=== PATIENT | female | born 1995 ===

== ENCOUNTER 2016-11-23 04:22 | Emergency (ER) | payer SELFPAY ==
[2016-11-23] MEDS ORDERED: Sodium Chloride 0.9% 500 ML IV ONE ×2 (04:53→05:00)
[2016-11-23 05:05] LABS: BASO % 0.2 % (0.0-2.0); EOS # 0.1 K/uL (0.0-0.7); EOS % 0.9 % (0.0-4.0); HEMATOCRIT 41.2 % (34.0-47.0); LYMPH # 0.6 K/uL (1.0-4.3); LYMPH % 4.5 % (20.0-40.0); MEAN CELL VOLUME 86.6 fL (81.0-99.0); MEAN CORPUSCULAR HEMOGLOBIN 28.6 pg (27.0-31.0); MEAN CORPUSCULAR HGB CONC 33.1 g/dL (33.0-37.0); MEAN PLATELET VOLUME 7.2 fL (7.2-11.7); MONO # 0.5 K/uL (0.0-0.8); MONO % 3.9 % (0.0-10.0); PLATELET COUNT 297 K/uL (130-400); RED CELL DISTRIBUTION WIDTH 13.2 % (11.5-14.5); WHITE BLOOD COUNT 13.7 K/uL (4.8-10.8)
--- NOTE | 2016-11-23 05:26 | C.PDOC ---
History Of Present Illness 21 y/o female presents to ED with c/o epigastric abdominal pain radiating to periumbilical area and left flank associated with vomiting x 3 since last night. Patient is currently menstruating for 2 days. Denies fever, chills, diarrhea, or other associated symptoms. Time Seen by Provider: 11/23/16 04:47 Chief Complaint (Nursing): Abdominal Pain History Per: Patient History/Exam Limitations: no limitations Onset/Duration Of Symptoms: Days Current Symptoms Are (Timing): Still Present Radiation Of Pain To:: Back (left) Quality Of Discomfort: "Pain" Associated Symptoms: Nausea, Vomiting. denies: Fever, Chills, Diarrhea, Constipation, Urinary Symptoms Past Medical History Reviewed: Historical Data, Nursing Documentation, Vital Signs Vital Signs: Last Vital Signs Temp 98.6 F 11/23/16 04:31 Pulse 100 H 11/23/16 04:31 Resp 18 11/23/16 04:31 BP 122/83 11/23/16 04:31 Pulse Ox 97 11/23/16 06:42 - Medical History PMH: No Chronic Diseases Family History: States: Unknown Family Hx - Social History Hx Alcohol Use: Yes Hx Substance Use: No - Immunization History Hx Tetanus Toxoid Vaccination: No Hx Influenza Vaccination: No Hx Pneumococcal Vaccination: No Review Of Systems Except As Marked, All Systems Reviewed And Found Negative. Constitutional: Negative for: Fever Respiratory: Negative for: Cough Gastrointestinal: Positive for: Nausea, Vomiting, Abdominal Pain Genitourinary: Negative for: Dysuria Skin: Negative for: Rash Physical Exam - Physical Exam Appears: Well, No Acute Distress Skin: Normal Color Head: Atraumatic Eye(s): bilateral: Normal Inspection, PERRL Oral Mucosa: Moist Cardiovascular: Rhythm Regular, No Murmur Respiratory: Normal Breath Sounds, No Wheezing Gastrointestinal/Abdominal: Normal Exam, Soft, Tenderness (minmal to LUQ), No Distention, No Guarding, No Rebound Rectal: Deferred Back: No CVA Tenderness Pelvic: Other (refused - menstruating) ED Course And Treatment - Laboratory Results Result Diagrams: 11/23/16 05:02 11/23/16 05:02 O2 Sat by Pulse Oximetry: 97 Pulse Ox Interpretation: Normal Progress Note: Labs ordered and reviewed. Pt reports improvemnt of back and LUQ pain, now c/o of pain to periumbilical /epigastric area. Abdomen CT with PO and IV contrast ordered Disposition Counseled Patient/Family Regarding: Diagnosis, Need For Followup - Disposition Disposition Time: 05:32 Condition: STABLE Additional Instructions: Take meds as prescribed Follow up in clinic Return to ER if fever, increasing or recurring pain or if symptoms worsen Prescriptions: Aluminum Hydroxide/Magnesium H [Maalox 30 ml] 30 ml PO BID #100 ml Famotidine [Pepcid] 20 mg PO DAILY #20 tab Forms: General Discharge Instructions - Clinical Impression Clinical Impression: Epigastric abdominal pain - Scribe Statement The provider has reviewed the documentation as recorded by the Scribe Physician Patient Turnover Patient Signed Over To: Darcy Encarnacion Handoff Comments: Pending Abd / pelvis CT
[2016-11-23 05:27] LABS: RBC URINE 16 /hpf (0-3); URINE BILIRUBIN NEGATIVE (NEGATIVE); URINE BLOOD NEGATIVE (NEGATIVE); URINE COLOR Yellow (YELLOW); URINE GLUCOSE (UA) NORMAL (Normal); URINE KETONE TRACE mg/dL (NEGATIVE); URINE LEUKOCYTE ESTERASE NEG Leu/uL (Negative); URINE PROTEIN 2+ mg/dL (NEGATIVE); WBC URINE 1 /hpf (0-5)
[2016-11-23 06:10] LABS: ALKALINE PHOSPHATASE 57 U/L (38-126); BILIRUBIN,TOTAL 0.7 mg/dL (0.2-1.3); CALCIUM 8.6 mg/dl (8.6-10.4); CHLORIDE 103 mmol/L (98-107); GFR AFRICAN-AMERICAN > 60; GLUCOSE,RANDOM 101 mg/dL (65-105); POTASSIUM 3.7 mmol/L (3.6-5.2); SODIUM 142 mmol/L (132-148)
[2016-11-23 06:11] LABS: NEUTROPHIL 89 % (50-75); TOTAL CELLS COUNTED 100
[2016-11-23 06:18] LABS: ALB/GLOB RATIO 1.4 (1.0-2.1); AST/SGOT 28 U/L (14-36); CARBON DIOXIDE 23 mmol/L (22-30); TOTAL PROTEIN 7.3 g/dL (6.3-8.3)
[2016-11-23 06:19] LABS: ALT/SGPT 19 U/L (9-52); BLOOD UREA NITROGEN 12 mg/dL (7-17)
[2016-11-23] MEDS ORDERED: Aluminum Hydroxide/Magnesium Hydroxide Susp (30 mL) PO STA (06:30)
[2016-11-23] MEDS ORDERED: Iohexol 240 (50 ml) PO ONE (06:46)
[2016-11-23] MEDS ORDERED: Aluminum Hydroxide/Magnesium Hydroxide Susp (30 mL) ONE (06:48)
[2016-11-23] MEDS ORDERED: Iohexol 240 (50 ml) ONE (06:59)
[2016-11-23] MEDS ORDERED: Iohexol 350mg/ml 100 ML ONE (08:53)
--- NOTE | 2016-11-23 10:15 | CT ---
PROCEDURE: CT Abdomen and Pelvis with contrast HISTORY: RLQ pain COMPARISON: None. TECHNIQUE: Contrast dose: 100 mL Radiation dose: Total exam DLP = 323.53 mGy-cm. This CT exam was performed using one or more of the following dose reduction techniques: Automated exposure control, adjustment of the mA and/or kV according to patient size, and/or use of iterative reconstruction technique. FINDINGS: LOWER THORAX: Unremarkable. LIVER: Geographic hypoattenuation of the liver likely from hepatic steatosis. GALLBLADDER AND BILE DUCTS: Unremarkable. PANCREAS: Unremarkable. No gross lesion or ductal dilatation. SPLEEN: Unremarkable. 1.2 centimeter likely splenule best seen on image 51 series 3. ADRENALS: Unremarkable. No mass. KIDNEYS AND URETERS: Unremarkable. No hydronephrosis. No solid mass. Dual arterial supply to the right kidney. Dual collecting system on the left. VASCULATURE: No aortic aneurysm. Moderately dilated veins in the pelvis particularly on the left. BOWEL: Unremarkable. No obstruction. No gross mural thickening. APPENDIX: Normal appendix. PERITONEUM: Unremarkable. No free fluid. No free air. LYMPH NODES: Unremarkable. No enlarged lymph nodes. BLADDER: Unremarkable. REPRODUCTIVE: Please note that evaluation of gynecologic organs is not optimal on CT imaging. Soft tissue structures seen posterior to the uterus could represent the lower uterine segment/cervix. Small amount of fluid seen in the cul-de-sac. BONES: No acute fracture. OTHER FINDINGS: None. IMPRESSION: No evidence of appendicitis. Soft tissue structure seen posterior to the uterus could represent the lower uterine segment/ cervix. Followup evaluation with ultrasound recommended.
[2016-11-23 10:39] VITALS: BP 98/59; PULSE 98; RESP 16; TEMP 98.4; O2SAT 99
== END 2016-11-23 10:50 | disposition home or self-care (01) ==
LOC: C.ER 04:22 → SUPCPDRO 04:22 → C.ER 10:50
DX: R10.13 Epigastric pain (principal)
CPT/HCPCS: 74177; 80053; 81001; 83690; 84703; 85025; 96361; 96374; 96375; 96376; 99285; J1885; J2405; J7040; Q9966; Q9967

== ENCOUNTER 2018-03-27 12:54 | Emergency (ER) | payer OTHER ==
[2018-03-27 13:36] LABS: HCG,QUALITATIVE URINE NEGATIVE (NEGATIVE); URINE CLARITY Clear (Clear); URINE COLOR YELLOW (YELLOW)
[2018-03-27 13:37] LABS: PH,URINE 5.5 (5.0-8.0); URINE BILIRUBIN NEGATIVE (NEGATIVE); URINE BLOOD 2+ (NEGATIVE); URINE GLUCOSE (UA) NEGATIVE (Normal); URINE LEUKOCYTE ESTERASE NEGATIVE Leu/uL (Negative); URINE PROTEIN NEGATIVE (NEGATIVE); URINE UROBILINOGEN 0.2 mg/dL (0.2-1.0)
[2018-03-27 13:49] LABS: SQUAMOUS EPITHIAL 6 /hpf (0-5); URINE BACTERIA RARE (<OCC)
--- NOTE | 2018-03-27 14:09 | C.PDOC ---
History Of Present Illness 23 y/o female presents to ED with c/o right flank pain for 3 weeks and vaginal spotting. Patient has had symptoms previously and was told she had kidney infection and needed ultrasound. Patient denies abdominal pain, nausea, vomiting , fever, chills or any other complaints at this time. Time Seen by Provider: 03/27/18 13:14 Chief Complaint (Nursing): Female Genitourinary History Per: Patient History/Exam Limitations: no limitations Onset/Duration Of Symptoms: Days Current Symptoms Are (Timing): Still Present Past Medical History Reviewed: Historical Data, Nursing Documentation, Vital Signs Vital Signs: Last Vital Signs Temp 98.1 F 03/27/18 13:02 Pulse 72 03/27/18 13:02 Resp 16 03/27/18 13:02 BP 125/76 03/27/18 13:02 Pulse Ox 98 03/27/18 14:11 - Medical History PMH: No Chronic Diseases Surgical History: No Surg Hx Family History: States: No Known Family Hx - Social History Hx Alcohol Use: Yes Hx Substance Use: No - Immunization History Hx Tetanus Toxoid Vaccination: No Hx Influenza Vaccination: No Hx Pneumococcal Vaccination: No Review Of Systems Except As Marked, All Systems Reviewed And Found Negative. Genitourinary: Positive for: Other (Right flank pain) Physical Exam - Physical Exam Appears: Non-toxic, No Acute Distress Skin: Warm, Dry, No Rash Head: Atraumatic, Normacephalic Eye(s): bilateral: Normal Inspection Oral Mucosa: Moist Cardiovascular: Rhythm Regular Respiratory: Normal Breath Sounds, No Rales, No Rhonchi, No Wheezing Gastrointestinal/Abdominal: Soft, No Tenderness, No Guarding, No Rebound Back: No CVA Tenderness, No Paraspinal Tenderness Neurological/Psych: Oriented x3, Normal Speech, Normal Cognition ED Course And Treatment O2 Sat by Pulse Oximetry: 98 (RA) Pulse Ox Interpretation: Normal Medical Decision Making Medical Decision Making: Assessment: Flank pain Disposition - Disposition Referrals: Vance Tomas MD [Staff Provider] - Disposition: HOME/ ROUTINE Disposition Time: 15:26 Condition: STABLE Additional Instructions: follow up with urology in 2 days call to make an appointment take medications as prescribed return to ER if symptoms worsens or progress Prescriptions: Naproxen [Naprosyn] 500 mg PO BID PRN #16 tab PRN Reason: Pain, Moderate (4-7) Instructions: Kidney Stones (DC) Forms: [facility] (Salvadorean), General Discharge Instructions - Clinical Impression Clinical Impression: Kidney stone - Scribe Statement The provider has reviewed the documentation as recorded by the Dixonibjackie Swain All medical record entries made by the Dixonibe were at my direction and personally dictated by me. I have reviewed the chart and agree that the record accurately reflects my personal performance of the history, physical exam, medical decision making, and the department course for this patient. I have also personally directed, reviewed, and agree with the discharge instructions and disposition.
--- NOTE | 2018-03-27 14:52 | US ---
Renal ultrasound History: Flank pain. Comparison: None available. Technique: Real-time sonography was performed through the kidneys. Findings: Right kidney: 11.3 x 3.8 x 4.8 centimeters. Normal echogenicity. 3 millimeter echogenic foci in the midpole of the right kidney suggestive for a calculus. Mild fullness of the right renal collecting system without gross hydronephrosis. Visualized aorta is grossly preserved. Left Kidney: 11.3 x 5.8 x 5.3 cm. Normal echogenicity. No calculi or hydronephrosis. Underdistended urinary bladder limits evaluation. Impression: 3 millimeter echogenic calcification/ calculus in the midpole of the right kidney with mild fullness of the right renal collecting system. No gross hydronephrosis. Clinical correlation.
[2018-03-27 15:38] VITALS: BP 118/74; PULSE 74; RESP 18; TEMP 98; O2SAT 99
== END 2018-03-27 15:37 | disposition home or self-care (01) ==
LOC: C.ER 12:54
DX: N20.0 Calculus of kidney (principal)

== ENCOUNTER 2018-06-27 13:23 | Emergency (ER) | payer OTHER ==
[2018-06-27 13:33] VITALS: RESP 16
--- NOTE | 2018-06-27 14:02 | C.PDOC ---
History Of Present Illness 23 y/o female pt presents to the ER complaining of weakness and headache. Pt reports she was at her boyfriend's physician office when she suddenly felt dizzy, light-headed and flushed. She also felt numb on her hands, face and mouth. Pt was near-syncopal and her boyfriend states that she looked pale and gave her candy because he thought her blood sugar dropped. Pt denies visual changes, nausea, SOB, vomiting, chest pain and abdominal pain. Pt has an IUD and doesn't get her period often. Time Seen by Provider: 06/27/18 13:42 Chief Complaint (Nursing): Dizziness/Lightheaded History Per: Patient History/Exam Limitations: no limitations Onset/Duration Of Symptoms: Hrs Current Symptoms Are (Timing): Better Activity At Onset Of Symptoms: Sitting Past Medical History Reviewed: Historical Data, Nursing Documentation, Vital Signs Vital Signs: Last Vital Signs Temp 98.1 F 06/27/18 13:31 Pulse 69 06/27/18 13:31 Resp 16 06/27/18 13:31 BP 124/88 06/27/18 13:31 Pulse Ox 98 06/27/18 13:31 Family History: States: Unknown Family Hx - Social History Hx Alcohol Use: Yes Hx Substance Use: No - Immunization History Hx Tetanus Toxoid Vaccination: No Hx Influenza Vaccination: No Hx Pneumococcal Vaccination: No Review Of Systems Eyes: Negative for: Vision Change Cardiovascular: Negative for: Chest Pain Gastrointestinal: Negative for: Nausea, Vomiting, Abdominal Pain Neurological: Positive for: Weakness, Headache Physical Exam - Physical Exam Appears: Non-toxic, No Acute Distress Skin: Normal Color, Warm, Dry Head: Normacephalic Eye(s): bilateral: Normal Inspection, PERRL, EOMI Nose: Normal Oral Mucosa: Moist Neck: Normal ROM, Supple Chest: Symmetrical, No Deformity Cardiovascular: Rhythm Regular Respiratory: Normal Breath Sounds Gastrointestinal/Abdominal: Soft, No Tenderness Back: No CVA Tenderness Extremity: Normal ROM (x4) Pulses: Left Radial: Normal, Right Radial: Normal Neurological/Psych: Oriented x3, Normal Speech, Normal Cognition Gait: Steady ED Course And Treatment - Laboratory Results Result Diagrams: 06/27/18 14:29 06/27/18 14:29 Lab Interpretation: No Acute Changes ECG: Interpreted By Me, Viewed By Me ECG Rhythm: Sinus Rhythm ECG Interpretation: Normal, No Acute Changes Rate From EC O2 Sat by Pulse Oximetry: 98 (RA) Pulse Ox Interpretation: Normal Progress Note: Orthostatic vital signs normal. Reevaluation Time: 15:52 Reassessment Condition: Unchanged (Patient still c/o feeling "lightheaded' but has no other specific complaints,) Medical Decision Making Medical Decision Making: Impression: weakness and headache plans: -- ekg -- blood work -- chem labs -- UA Disposition Counseled Patient/Family Regarding: Studies Performed, Diagnosis, Need For Followup - Disposition Referrals: [facility] [Outside] Disposition: HOME/ ROUTINE Disposition Time: 15:53 Condition: STABLE Additional Instructions: Encourage plenty of fluids and rest. Eat frequent small meals to avoid low blood sugar. Instructions: Dizziness, Nonvertigo, (DC) Forms: [facility] (Jordanian) - Clinical Impression Clinical Impression: Dizziness - Scribe Statement The provider has reviewed the documentation as recorded by the Scribe Terrazas Do Provider Attestation: All medical record entries made by the Scribe were at my direction and personally dictated by me. I have reviewed the chart and agree that the record accurately reflects my personal performance of the history, physical exam, medical decision making, and the department course for this patient. I have also personally directed, reviewed, and agree with the discharge instructions and disposition.
[2018-06-27 14:40] LABS: BASO # 0.1 K/uL (0.0-0.2); BASO % 0.6 % (0.0-2.0); EOS # 0.1 K/uL (0.0-0.7); EOS % 0.7 % (0.0-4.0); HEMOGLOBIN 13.6 g/dL (11.0-16.0); LYMPH # 1.3 K/uL (1.0-4.3); MEAN CELL VOLUME 86.8 fL (81.0-99.0); MEAN CORPUSCULAR HEMOGLOBIN 28.6 pg (27.0-31.0); MEAN PLATELET VOLUME 7.1 fL (7.2-11.7); MONO # 0.5 K/uL (0.0-0.8); NEUT # 7.8 K/uL (1.8-7.0); NEUT % 80.7 % (50.0-75.0); RBC 4.75 Mil/uL (3.80-5.20); RED CELL DISTRIBUTION WIDTH 13.2 % (11.5-14.5); WHITE BLOOD COUNT 9.7 K/uL (4.8-10.8)
[2018-06-27 14:50] LABS: SQUAMOUS EPITHIAL 4 /hpf (0-5); URINE BILIRUBIN NEGATIVE (NEGATIVE); URINE BLOOD 1+ (NEGATIVE); URINE CLARITY Clear (Clear); URINE COLOR Yellow (YELLOW); URINE GLUCOSE (UA) NORMAL (Normal); URINE LEUKOCYTE ESTERASE NEG Leu/uL (Negative); URINE PROTEIN NEGATIVE (NEGATIVE); URINE UROBILINOGEN NORMAL mg/dL (0.2-1.0)
[2018-06-27 15:23] LABS: ALB/GLOB RATIO 1.7 (1.0-2.1); ALBUMIN 4.8 g/dL (3.5-5.0); ALT/SGPT 24 U/L (9-52); AST/SGOT 29 U/L (14-36); BLOOD UREA NITROGEN 12 mg/dL (7-17); CALCIUM 9.1 mg/dl (8.6-10.4); GFR NON-AFRICAN AMERICAN > 60
[2018-06-27 16:03] VITALS: BP 101/64; PULSE 75; TEMP 98.2; O2SAT 100
--- NOTE | 2018-06-30 20:07 | CARD ---
APPROVED REPORT Date of service: 06/27/2018 EKG Measurement Heart [id number] <Conclusion> Normal sinus rhythm Minimal voltage criteria for LVH, may be normal variant Borderline ECG
== END 2018-06-27 16:19 | disposition home or self-care (01) ==
LOC: C.ER 13:23
DX: R42 Dizziness and giddiness (principal)

== ENCOUNTER 2018-09-06 09:31 | Outpatient (CLI) | payer OTHER | END 2018-09-06 09:32 | disposition home or self-care (01) | LOC: C.USIC 09:31 | DX: R10.2 Pelvic and perineal pain (principal) ==

== ENCOUNTER 2018-11-22 11:13 | Emergency (ER) | payer OTHER ==
[2018-11-22 11:19] VITALS: BMI 24.4
[2018-11-22 12:05] LABS: BASO # 0.1 K/uL (0.0-0.2); BASO % 0.6 % (0.0-2.0); EOS # 0.3 K/uL (0.0-0.7); EOS % 2.6 % (0.0-4.0); HEMOGLOBIN 14.4 g/dL (11.0-16.0); LYMPH # 1.4 K/uL (1.0-4.3); LYMPH % 14.2 % (20.0-40.0); MEAN CORPUSCULAR HEMOGLOBIN 29.5 pg (27.0-31.0); MEAN CORPUSCULAR HGB CONC 33.5 g/dL (33.0-37.0); MEAN PLATELET VOLUME 7.4 fL (7.2-11.7); MONO # 0.8 K/uL (0.0-0.8); MONO % 7.9 % (0.0-10.0); NEUT # 7.3 K/uL (1.8-7.0); NEUT % 74.7 % (50.0-75.0); NRBC % 0.1 % (0.0-2.0); RBC 4.87 Mil/uL (3.80-5.20); RED CELL DISTRIBUTION WIDTH 13.6 % (11.5-14.5); WHITE BLOOD COUNT 9.8 K/uL (4.8-10.8)
[2018-11-22 12:11] LABS: SQUAMOUS EPITHIAL 9 /hpf (0-5); URINE BACTERIA RARE (<OCC); URINE BILIRUBIN NEGATIVE (NEGATIVE); URINE BLOOD 1+ (NEGATIVE); URINE CLARITY Clear (Clear); URINE COLOR Yellow (YELLOW); URINE GLUCOSE (UA) NORMAL (Normal); URINE LEUKOCYTE ESTERASE NEG Leu/uL (Negative); URINE PROTEIN NEGATIVE (NEGATIVE); URINE UROBILINOGEN NORMAL mg/dL (0.2-1.0)
[2018-11-22 12:13] LABS: INR 1.2; PROTHROMBIN TIME 12.9 SECONDS (9.7-12.2)
[2018-11-22 12:19] LABS: ALB/GLOB RATIO 1.5 (1.0-2.1); ALBUMIN 4.5 g/dL (3.5-5.0); ALT/SGPT 13 U/L (9-52); AST/SGOT 44 U/L (14-36); BLOOD UREA NITROGEN 8 mg/dL (7-17); CALCIUM 9.4 mg/dl (8.6-10.4); GFR NON-AFRICAN AMERICAN > 60
[2018-11-22] MEDS ORDERED: Sodium Chloride 0.9% 1,000 ML IV ONE (13:20)
[2018-11-22] MEDS ORDERED: Sodium Chloride 0.9% 1,000 ML ONE (13:25)
--- NOTE | 2018-11-22 13:27 | C.PDOC ---
History Of Present Illness 23-year-old female, hx asthma, presents to the ED for evaluation of right-sided headache and light sensitivity which has been intermittent over the past couple weeks, but no headache at present. Patient also complains of cough and feeling unwell over the past 1-2 days. As she arrived to the ED, patient began feeling heaviness to her left leg and tingling sensation in her left anterior thigh that radiates down her leg. Patient denies fever, chills, chest pain and shortness of breath. Time Seen by Provider: 11/22/18 11:25 Chief Complaint (Nursing): Cough, Cold, Congestion History Per: Patient History/Exam Limitations: no limitations Onset/Duration Of Symptoms: Days, Intermittent Episodes Current Symptoms Are (Timing): Still Present Location Of Pain: Headache (right-sided ) Associated Symptoms: Cough. denies: Fever, Chills Additional History Per: Patient Past Medical History Reviewed: Historical Data, Nursing Documentation, Vital Signs Vital Signs: Last Vital Signs Temp 98.7 F 11/22/18 11:18 Pulse 77 11/22/18 11:18 Resp 20 11/22/18 11:18 BP 118/80 11/22/18 11:18 Pulse Ox 99 11/22/18 11:18 - Medical History PMH: No Chronic Diseases Denies: Chronic Kidney Disease Surgical History: No Surg Hx Family History: States: Unknown Family Hx - Social History Hx Alcohol Use: Yes Hx Substance Use: No - Immunization History Hx Tetanus Toxoid Vaccination: No Hx Influenza Vaccination: No Hx Pneumococcal Vaccination: No Review Of Systems Constitutional: Negative for: Fever, Chills Eyes: Positive for: Other (light sensitivity ) Cardiovascular: Negative for: Chest Pain Respiratory: Negative for: Shortness of Breath Genitourinary: Positive for: Dysuria Musculoskeletal: Positive for: Other (generalized body aches ) Neurological: Positive for: Headache (right-sided ), Other (heaviness and tingling sensation in left lower extremity ) Physical Exam - Physical Exam Appears: Non-toxic, No Acute Distress Skin: Normal Color, Warm, Dry Head: Atraumatic, Normacephalic Eye(s): bilateral: Other (watery ) Ear(s): Bilateral: Normal Nose: Normal, No Discharge Oral Mucosa: Moist Throat: Normal, No Erythema, No Exudate Neck: Normal ROM, Supple Chest: Symmetrical, No Deformity, No Tenderness Cardiovascular: Rhythm Regular, No Murmur Respiratory: Normal Breath Sounds, No Rales, No Rhonchi, No Stridor, No Wheezing Gastrointestinal/Abdominal: Soft, No Tenderness, No Guarding, No Rebound Extremity: Normal ROM, No Tenderness, Capillary Refill (less than 2 seconds ), No Deformity, No Swelling Neurological/Psych: Oriented x3, Normal Speech, Normal Cognition, Normal Cranial Nerves, Normal Sensation, Other (4.5/5 strength to left lower extremity ) ED Course And Treatment - Laboratory Results Result Diagrams: 11/22/18 12:00 11/22/18 12:00 Lab Results: PT 12.9 SECONDS (9.7-12.2) H 11/22/18 12:00 INR 1.2 11/22/18 12:00 APTT 39 SECONDS (21-34) H 11/22/18 12:00 Total Bilirubin 0.4 mg/dL (0.2-1.3) 11/22/18 12:00 AST 44 U/L (14-36) H D 11/22/18 12:00 ALT 13 U/L (9-52) 11/22/18 12:00 Alkaline Phosphatase 54 U/L (38-126) 11/22/18 12:00 Total Protein 7.5 g/dL (6.3-8.3) 11/22/18 12:00 Albumin 4.5 g/dL (3.5-5.0) 11/22/18 12:00 Globulin 3.0 gm/dL (2.2-3.9) 11/22/18 12:00 Albumin/Globulin Ratio 1.5 (1.0-2.1) 11/22/18 12:00 Urine Color Yellow (YELLOW) 11/22/18 12:00 Urine Clarity Clear (Clear) 11/22/18 12:00 Urine pH 6.0 (5.0-8.0) 11/22/18 12:00 Ur Specific Bertha 1.008 (1.003-1.030) 11/22/18 12:00 Urine Protein Negative mg/dL (NEGATIVE) 11/22/18 12:00 Urine Glucose (UA) Normal mg/dL (Normal) 11/22/18 12:00 Urine Ketones Negative mg/dL (NEGATIVE) 11/22/18 12:00 Urine Blood 1+ (NEGATIVE) H 11/22/18 12:00 Urine Nitrate Negative (NEGATIVE) 11/22/18 12:00 Urine Bilirubin Negative (NEGATIVE) 11/22/18 12:00 Urine Urobilinogen Normal mg/dL (0.2-1.0) 11/22/18 12:00 Ur Leukocyte Esterase Neg Lenny/uL (Negative) 11/22/18 12:00 Urine WBC (Auto) 2 /hpf (0-5) 11/22/18 12:00 Urine RBC (Auto) 8 /hpf (0-3) H 11/22/18 12:00 Ur Squamous Epith Cells 9 /hpf (0-5) H 11/22/18 12:00 Urine Bacteria Rare (<OCC) 11/22/18 12:00 O2 Sat by Pulse Oximetry: 99 (on RA) Pulse Ox Interpretation: Normal - CT Scan/US CT Head Other Rad Studies (CT/US): Read By Radiologist, Radiology Report Reviewed CT/US Interpretation: IMPRESSION: No acute intracranial pathology identified. Medical Decision Making Medical Decision Making: Progress: Bloodwork, urinalysis, CT Head ordered and reviewed. Reglan IVPB, Tylenol PO and IV Fluids given. pt reports headache developed on right side while in ed with photosensitivity similar to headaches she has had in past. pt with heg head ct. normal labs, some hematuria, (prior kidney stones, no acute flank pain). pt given tylenol, and ivpb reglan, and feels better. will d/c pt with recommendation to keep headache diary, follow up in medical clinic [facility] for referral to neurology. pt requesting refill of albuterol mdi. . Disposition Counseled Patient/Family Regarding: Studies Performed, Diagnosis, Need For Fo llowup, Rx Given - Disposition Referrals: Frank Goldstein MD [Staff Provider] - [facility] [Outside] Vance Tomas MD [Staff Provider] - Disposition: HOME/ ROUTINE Disposition Time: 15:12 Condition: IMPROVED Additional Instructions: Please keep headache diary to bring with you to clinic and to neurologist. Recommend medical clinic, urological and neurology follow up. Drink increased fluids. Prescriptions: Acetaminophen [Tylenol 325mg tab] 650 mg PO Q4 #50 tab Albuterol HFA [Ventolin HFA 90 mcg/actuation (8 g)] 2 puff IH Q6 #1 inhaler Instructions: Headache, Adult (DC), Blood in the Urine (Hematuria), Adult (DC) Forms: [facility] (Sinhala), General Discharge Instructions - Clinical Impression Clinical Impression: Headache, Hematuria, Viral disease - PA / EVP OPERATIONS / Resident Statement MD/DO has reviewed & agrees with the documentation as recorded. - Scribe Statement The provider has reviewed the documentation as recorded by the Scribe (Melissa Mcdonnell) All medical record entries made by the Scribe were at my direction and personally dictated by me. I have reviewed the chart and agree that the record accurately reflects my personal performance of the history, physical exam, medical decision making, and the department course for this patient. I have also personally directed, reviewed, and agree with the discharge instructions and disposition.
[2018-11-22 13:36] VITALS: RESP 18
--- NOTE | 2018-11-22 13:37 | CT ---
Date of service: 11/22/2018 PROCEDURE: CT HEAD WITHOUT CONTRAST. HISTORY: left leg tingling, headaches right side COMPARISON: None available. TECHNIQUE: Axial computed tomography images were obtained through the head/brain without intravenous contrast. Radiation dose: Total exam DLP = 896.26 mGy-cm. This CT exam was performed using one or more of the following dose reduction techniques: Automated exposure control, adjustment of the mA and/or kV according to patient size, and/or use of iterative reconstruction technique. FINDINGS: HEMORRHAGE: No intracranial hemorrhage. BRAIN: No mass effect or edema. No atrophy or chronic microvascular ischemic changes.Please note that MRI with diffusion imaging is more sensitive in the detection of acute ischemic event. VENTRICLES: No hydrocephalus. CALVARIUM: Unremarkable. PARANASAL SINUSES: Mild mucosal thickening of the ethmoid air cells. MASTOID AIR CELLS: Unremarkable as visualized. No inflammatory changes. OTHER FINDINGS: None. IMPRESSION: No acute intracranial pathology identified.
[2018-11-22 15:22] VITALS: BP 109/67; PULSE 58; TEMP 98.3; O2SAT 97
== END 2018-11-22 15:37 | disposition home or self-care (01) ==
LOC: C.ER 11:13
DX: R51 Headache (principal); R31.9 Hematuria, unspecified; B34.9 Viral infection, unspecified
CPT/HCPCS: 70450; 80053; 81001; 81025; 82948; 85025; 85610; 85730; 96361; 96365; 99285; J2765; J7030